=== PATIENT | male | born 1960 | race Caucasian/White ===

== ENCOUNTER → 2017-06-02 18:51 | Outpatient (CLI) | payer MEDICAID ==
[2017-06-03 14:26] LABS: T4 THYROXINE 9.6 ug/dL (4.7-13.3); THYROID STIMULATING HORMONE 1.06 uIU/mL (0.36-3.74)
== END | disposition home or self-care (01) ==
LOC: D.LABREF 18:51
PROVIDERS: Internal Medicine Cardiovascular Disease
DX: R07.9 Chest pain, unspecified (principal); R53.1 Weakness; R60.9 Edema, unspecified

== ENCOUNTER → 2017-06-08 08:45 | Outpatient (CLI) | payer MEDICAID ==
--- NOTE | 2017-06-09 15:47 | EC ---
PATIENT:SONAM ANGLIN DATE OF SERVICE: 06/08/17 SEX: M MEDICAL RECORD: [id number] DATE OF : 56 LOCATION:[facility] INCLUDE 234 BEDS AT THE [facility] AGE OF PATIENT: 56 ADMISSION DATE: 06/08/17 REFERRING PHYSICIAN: INTERPRETING PHYSICIAN: ASHLEY MEJÍA MD ECHOCARDIOGRAM REPORT ECHO CHARGES 4 ECHO COMPLETE CLINICAL DIAGNOSIS: DYSPNEA ECHOCARDIOGRAPHIC MEASUREMENTS (adult normal given) AC root (d.<3.7cm) 3.7 cm LV Septum d (<1.2 cm> 1.1 cm Valve Excursion 2.4 cm LV Septum (systole) 1.9 cm Left Atria (s.<4.0cm> 4.4 cm LVPW d(<1.2cm) 1.0 cm RV (d.<2.3cm) 2.5 cm LVPW (sytole) 1.7 cm LV diastole(<5.6CM) 5.4 cm MV E-F(>70mm/sec) cm LV systole 3.1 cm LVOT Diameter 2.1 cm MV exc.(>10mm) cm Est.ejection fraction (50-75%) % Pericardial Effusion N DOPPLER: LVIT cm/sec A 43.0 cm/sec E 81.0 cm/sec LA cm/sec RVSP 29.3 mmHg LVOT 140 cm/sec AOP1/2T m/s Asc. Ao 142 cm/sec RVOT 76.0 cm/sec RA cm/sec PA 87.0 cm/sec AV Gradient Peak 8.1 mmHg AV Mean 4.2 mmHg AV Area 3.0 cm MV Gradient Peak 3.6 mmHg MV Mean 1.2 mmHg MV Area cm COMMENTS: ECHO WITH BUBBLE STUDY Phlebotomist Associate: Malick PHANOE Practice Specialist: Teresa Mejía TAPE# PACS DATE OF SERVICE: 06/08/2017 PROCEDURE: Echocardiogram with bubble study. FINDINGS: 1. Left ventricle: Left ventricle shows normal size and normal function. Inflow characteristics into the left ventricle are normal without any evidence of diastolic dysfunction. 2. The mitral valve is normal with trace to mild mitral regurgitation. 3. The left atrium is mildly enlarged. ECHOCARDIOGRAM REPORT [id number] SONAM ANGLIN 4. The right atrium is normal in size and function. 5. The aortic valve is grossly normal with normal function. 6. The tricuspid valve has mild tricuspid regurgitation and normal right ventricular systolic pressures. BUBBLE STUDY: Agitated saline mixed with him was injected into a peripheral venous IV that showed excellent opacification on the right-sided structures. We did delay the imaging and even with delay greater than 8 beats, there were no bubbles seen on the left-sided structures. Grossly normal bubble study indicating no evidence of PFO or atrial septal defect at this point. CONCLUSIONS: Normal echo with bubble study. TRANSINT:[id number] Voice Confirmation ID: [id number] DOCUMENT ID: [id number] ASHLEY MEJÍA MD at 1547 CC: [id number] DICTATION DATE: 06/08/17 1150 [employer] ST[facility] SORTER: 06/08/[address] [facility] CLI 06/08/17 [facility] [address] [place] [address]
== END | disposition home or self-care (01) ==
LOC: D.ECHO 08:45
DX: R06.00 Dyspnea, unspecified (principal)

== ENCOUNTER → 2017-06-09 12:57 | Outpatient (CLI) | payer MEDICAID | END | disposition home or self-care (01) | LOC: D.US 12:57 | DX: R60.0 Localized edema (principal); M79.605 Pain in left leg; M79.604 Pain in right leg ==

== ENCOUNTER 2017-07-06 06:23 | Outpatient (CLI) | payer MEDICAID ==
[~2017-07-06] VITALS: Ht 182.9 cm; Wt 90.9 kg
--- NOTE | ~2017-07-06 | HEMODYNAMI ---
PATIENT:SONAM ANGLIN MEDICAL RECORD: [id number] : 56 LOCATION:[place] ADMISSION DATE: 07/06/17 Generatedon:07/06/20179:02 Patient name: SONAM ANGLIN Patient #: [id number] SSN: DO B: 1960 Date of study: 07/06/2017 Page: Of Hemodynamic Procedure Report Patient Data Patient Demographics Procedure consent was obtained First Name: SONAM Gender: Male Last Name: LINNETTE : 1960 [facility] Initial: BARBARA Age: 56 year(s) Patient #: [id number] Race: Unknown Additional ID: [id number] Contact details [address]: [address] [place] [address] State: [place] City: [place] Zip code: [address] Past Medical History Allergies: No known allergies Admission Admission Data Admission Date: 07/06/2017 Admission Time: 6:23 Weight (lbs.): 200 Weight (kg.): 90.72 Procedure Procedure Types Cath Procedure Peripheral Cath Diagnostic Procedure Cath Peripheral Venography Extremity Bilat Venogram Lower Ext Procedure Description Procedure Date Procedure Date: 07/06/2017 Procedure Start Time: 8:39 Procedure Staff Name Function Kashmir Jauregui MD Performing Physician Herminio Bennett RT Scrub Nasra Barr RN Nurse Janice Sumner RT Branch Store Manager Janice Sumner RT Monitor Procedure Data Cath Procedure Fluoroscopy Diagnostic fluoroscopy Total fluoroscopy Time: 0.1 time: 0.1 min min Diagnostic fluoroscopy Total fluoroscopy dose: 186 dose: 186 mGy mGy Contrast Material Contrast Material Type Amount (ml) Isovue 300 20 Procedure Medications Medication Administration Route Dosage Lidocaine 1% added to field 20 Heparin Flush Bag added to field 2 bags (1000units/500ml NS) Oxygen NC 2 l/min Hemodynamics Rest Heart Rate: 65 (bpm) Snapshots Pre Cath Intra NCS Post Cath Vital Signs Time Heart Resp SPO2 NIBP (mmHg) Rhythm Pain Sedation Rate (ipm) (%) Status Level (bpm) 8:07:33 64 99 126/74(95) NSR 0 (11) 10(A) , No pain 8:11:49 67 11 97 121/73(96) NSR 0 (11) 10(A) , No pain 8:16:48 66 10 100 Measuring NSR 0 (11) 10(A) , No pain 8:17:13 70 1 100 128/76(110) NSR 0 (11) 10(A) , No pain 8:21:25 66 15 99 128/78(109) NSR 0 (11) 10(A) , No pain 8:25:41 67 98 125/71(96) NSR 0 (11) 10(A) , No pain 8:29:55 66 100 124/71(93) NSR 0 (11) 10(A) , No pain 8:34:07 67 0 100 119/76(97) NSR 0 (11) 10(A) , No pain 8:38:14 68 7 100 123/80(101) NSR 0 (11) 10(A) , No pain 8:42:30 58 10 100 118/63(97) NSR 0 (11) 9(A) , No pain 8:46:38 58 9 100 124/77(95) NSR 0 (11) 9(A) , No pain 8:50:50 58 7 99 124/72(94) NSR 0 (11) 9(A) , No pain 8:55:04 58 12 98 120/70(90) NSR 0 (11) 9(A) , No pain 8:59:14 60 98 119/75(92) NSR 0 (11) 9(A) , No pain Medications Time Medication Route Dose Verified Delivered Reason Notes Effec tiveness by by 8:23:57 Lidocaine 1% added 20ml Nasra Marlow for local to vial Momo Jauregui anesthetic field [place] 8:24:21 Heparin Flush added 2 Nasra Marlow used for Bag to bags Momo Jauregui procedure (1000units/500ml field [place] NS) 8:28:32 Oxygen NC 2 Nasra Marlow used for l/min Momo Jauregui kiln firer MD Procedure Log Time Note 8:00:18 Patient Weight : 200 lbs 8:01:25 Time tracking: Regular hours 8:03:25 H&P Date Dictated: 07/06/2017 Within 30 days and on chart.. 8:03:28 Pre-procedure instructions explained to patient. 8:03:29 Pre-op teaching completed and patient verbalized understanding. 8:03:33 Family in waiting room. 8:03:36 Patient NPO since Midnight. 8:03:51 Patient allergic to No known allergies 8:04:02 Is the patient allergic to Iodine/contrast media? No. 8:04:07 Is patient on blood thinner?No 8:04:11 Patient diabetic? No. 8:04:14 8:04:16 ----Pre-sedation anethsthesia assessment.---- 8:04:19 Previous problem with sedation/anesthesia? No ? 8:04:23 Snore? Yes 8:04:26 Sleep apnea? No 8:04:28 Deviated septum? No 8:04:30 Opens mouth fully? Yes 8:04:32 Sticks out tongue? Yes 8:04:53 Airway obstruction? No ? 8:04:57 Dentures? No ? 8:05:00 8:05:08 IV patent on arrival in left wrist with 0.9% NaCl at KVO. 8:05:21 Right groin area was prepped with chlora-prep and draped in sterile fashion 8:05:25 Left groin area was prepped with chlora-prep and draped in sterile fashion 8:05:28 8:05:43 Plan of Care:Hemodynamics will remain stable., Cardiac rhythm will remain stable., Comfort level will be maintained., Respiratory function will remain adequate., Patient/ family verbilizes understanding of procedure., Procedure tolerated without complication., Recovers from procedure without complications.. 8:05:52 Patient received from Outpatients to IR Alert and oriented. Tansferred to table in Supine position. 8:05:57 Signed procedure consent form obtained from patient. 8:06:11 ECG and BP/O2 sat monitors applied to patient. 8:06:19 Vital chart was started 8:06:35 Baseline sample Acquired. 8:06:37 8:06:48 Use device set IR Diagnostic 8:06:52 Sterile Angiographic Pack opened to sterile field. 8:06:54 Bag Decanter opened to sterile field. 8:08:31 Cordis 5Fr BRITE TIP 11cm sheath opened to sterile field. 8:08:32 PERCUTANEOUS ENTRY 19GA needle opened to sterile field. 8:08:34 [employer] DOC .035 guide wire opened to sterile field. 8:23:57 Lidocaine 1% 20ml vial added to field was administered by Kashmir Jauregui MD; for local anesthetic; 8:24:21 Heparin Flush Bag (1000units/500ml NS) 2 bags added to field was administered by Kashmir Jauregui MD; used for procedure; 8:28:32 Oxygen 2 l/min NC was administered by Kashmir Jauregui MD; used for procedure; 8:36:48 Physician arrived 8:37:08 --------ALL STOP TIME OUT------ 8:37:09 Final Timeout: patient, procedure, and site verified with staff and physician. All members of the team are in agreement. 8:37:27 Physical assessment completed. ASA score P 2 - A patient with mild systemic disease as per Kashmir Jauregui MD. 8:37:33 Sedation plan: IV Moderate Sedation Versed, Fentanyl 8:39:31 Procedure started. 8:39:31 Full Disclosure recording started 8:39:38 Local anesthetic to right femoral vein with Lidocaine 1% by Kashmir Jauregui MD.INITIAL ACCESS ONLY 8:40:31 Local anesthetic to left femoral vein with Lidocaine 1% by Kashmir Jauregui MD.ADDITIONAL ACCESS 8:40:44 Cordis 5Fr BRITE TIP 11cm sheath opened to sterile field. 8:50:06 Venogram performed 8:57:44 Procedure ended.(Physican Out) 8:57:57 Fluoroscopy time 00.10 minutes. 8:58:04 Fluoroscopy dose: 186 mGy 8:58:04 Flurop Dose total: 186 8:58:17 Contrast amount:Isovue 300 20ml. 8:58:19 Sharps counted by scrub and verified by R.N. 8:58:22 Procedure and supply charges have been captured, reviewed, submitted and are correct. 9:02:25 Vital chart was stopped Device Usage Item Name Manufacture Quantity Catalog Hospital Part Current Minimal Lot# / Number Charge Number Stock Stock Serial# Code Sterile Cardinal 1 [id number] Angiographic Health Pack Bag Decanter Microtek 1 [id number] 5 [employer] Cordis 5Fr Cardinal 2 [id number] [id number] 5 BRITE TIP Health 11cm sheath PERCUTANEOUS [employer] 1 [id number] ENTRY 19GA needle Cook [employer] 1 [id number] 5 [id number] .035 guide wire Signature Audit [place] Stage Time Signature Unsigned Intra-Procedure 07/06/2017 Janice Sumner 9:02:23 AM RT(R) Signatures Monitor : Janice Sumner RT Signature : Date : Time : [address] [id number]
[2017-07-06 07:00] LABS: BASOPHILS 0.7 % (0-2); EOSINOPHILS 4.6 % (0-7); HEMATOCRIT 41.2 % (42.0-54.0); IMMATURE GRANULOCYTES 0.1 % (0-5); LYMPHOCYTES 27.6 % (15-50); MCH 32.3 pg (26.0-34.0); MCV 94.9 fL (80.0-100.0); MEAN PLATELET VOLUME 10.3 fL (7.4-10.4); MONOCYTES 11.7 % (2-11); NEUTROPHILS 55.3 % (40-80); PLATELET COUNT 224 10x3/uL (130-400); RBC 4.34 10x6/uL (4.20-6.10); RDW 12.6 % (11.5-14.5); WBC 6.7 10x3/uL (4.8-10.8)
[2017-07-06] MEDS ORDERED: FUROSEMIDE40 MG PO (07:13)
[2017-07-06] MEDS ORDERED: CRESTOR20 MG PO (07:13)
[2017-07-06] MEDS ORDERED: ATIVAN0.5 MG PO (07:14)
[2017-07-06] MEDS ORDERED: IBUPROFEN200 MG PO (07:15)
[2017-07-06 07:20] LABS: ANION GAP 8.5 mmol/L (8-16); CALCIUM 8.3 mg/dL (8.5-10.1); CARBON DIOXIDE 28.6 mmol/L (21.0-32.0); CREATININE - SERUM 1.1 mg/dL (0.6-1.3); POTASSIUM - SERUM 4.1 mmol/L (3.5-5.1)
[2017-07-06 07:26] VITALS: BP 114/65; Ht 182.9 cm; Wt 90.9 kg
[2017-07-06 07:34] LABS: INR 0.95 (0.85-1.17); PROTIME 12.6 SECONDS (11.6-15.0)
[2017-07-06 07:35] LABS: APTT 28.4 SECONDS (22.8-39.4)
--- NOTE | 2017-07-06 13:33 | NUR ---
0915- PT TO ROOM IN SUPINE POSITON, BR FOR 4 HOURS, VSS AND TO BE MONITORED PER ORDERS. SEE VITAL SIGN SHEET FOR FIGURES. BILATERAL GROIN DRSSINGS C/D/I, BILATERA PEDAL PULSES PRESENT. 0945- BREAKFAST OFFERED WITH ASSIST DUE TO PATIENTS POSITIONING AND BEDREST STATUS. DRESSING C/D/I, PPP. 1100- VS CONTINUE TO BE STABLE. SUPINE AND BEDREST CONTINUES. WILL MONTIOR. 1200- NO CHANGES 1305- IV D/C'D, PT TOLERATED. CATHETER INTACT. 1315- PT UP OOB TO BR, VOIDED WITHOUT DIFFICULTY. READYING FOR D/C. 1320- DISCHARGE INSTRUCTIONS GIVEN, PT VERBALIZED UNDERSTANDING. PAPERWORK COMPLETED. 1325- PT DISCHARGED VIA WHEELCHAIR TO .
== END 2017-07-06 13:25 | disposition home or self-care (01) ==
LOC: D.OPS 06:23 → D.RAD 06:23 → D.OPS 13:25
PROVIDERS: Specialist
DX: R60.9 Edema, unspecified (principal); R06.02 Shortness of breath; Z01.812 Encounter for preprocedural laboratory examination